=== PATIENT | male | born 1970 | race Asian ===

== ENCOUNTER 2024-12-11 05:25 | Day surgery (SDC) | payer OTHER ==
[~2024-12-11] VITALS: Ht 160 cm; Wt 72.7 kg
[~2024-12-11 05:25] MED LIST: KETOROLAC TROMETHAMINE 0.5% 5 ML OPHTHALMIC SOLUTION ONE; MOXIFLOXACIN HCL 0.5% 3 ML OPHTHALMIC SOLUTION ONE; PHENYLEPHRINE HCL 2.5% 2 ML OPHTHALMIC SOLUTION ONE; TROPICAMIDE 1% 2 ML OPHTHALMIC SOLUTION ONE
[2024-12-11] MEDS: TROPICAMIDE 1% 2 ML OPHTHALMIC SOLUTION OD SCH (06:01)
[2024-12-11] MEDS: KETOROLAC TROMETHAMINE 0.5% 5 ML OPHTHALMIC SOLUTION OD SCH (06:01)
[2024-12-11] MEDS: MOXIFLOXACIN HCL 0.5% 3 ML OPHTHALMIC SOLUTION OD SCH (06:02)
[2024-12-11] MEDS: PHENYLEPHRINE HCL 2.5% 2 ML OPHTHALMIC SOLUTION OD SCH (06:03)
[2024-12-11] MEDS ORDERED: ATOR20TA PO (06:26)
[2024-12-11] MEDS ORDERED: ASPI-1450 PO (06:26)
[2024-12-11] MEDS ORDERED: AMLO-258 PO (06:26)
[2024-12-11] MEDS: RINGERS SOLUTION,LACTATED 500 ML IV ONE (06:42)
[2024-12-11] MEDS: TETRACAINE HCL/PF 0.5% 4 ML OPHTHALMIC SOLUTION ONE (07:00)
[2024-12-11] MEDS: LIDOCAINE/PF 1% 2 ML VIAL ONE (07:05)
[2024-12-11] MEDS: POVIDONE-IODINE 5% 30 ML OPHTHALMIC SOLUTION ONE (07:05)
[2024-12-11] MEDS: EPINEPHrine 1:1,000 [1 MG/ML] VIAL ONE (07:05)
[2024-12-11] MEDS: BALANCED SALT 15 ML OPHTHALMIC IRRIG.SOLN ONE (07:24)
[2024-12-11] MEDS: MitoMYcin 0.2 MG/VIAL KIT FOR OPHTHALMIC USE OD ONE (07:29)
[2024-12-11] MEDS ORDERED: OXYGEN THERAPY IH SCH (08:00)
[2024-12-11] MEDS ORDERED: CHONDR SULF A SOD/HYALURONATE 1.05 ML KIT IO ONE (12:00)
[2024-12-11] MEDS ORDERED: FentaNYL CITRATE PF 100 MCG/2 ML VIAL IVP ONE (12:00)
[2024-12-11] MEDS ORDERED: MIDAZOLAM HCL 2 MG/2 ML VIAL IVP ONE (12:00)
== END 2024-12-11 09:10 | disposition home or self-care (01) ==
LOC: SURGERY 05:25
PROVIDERS: ATTEND Ophthalmology
DX: H25.11 Age-related nuclear cataract, right eye (principal); H40.1112 Primary open-angle glaucoma, right eye, moderate stage; I10 Essential (primary) hypertension; F17.210 Nicotine dependence, cigarettes, uncomplicated; Z79.82 Long term (current) use of aspirin; Z98.890 Other specified postprocedural states
CPT/HCPCS: 0449T; 66984; 93005; J0171; J2250; J3010; J3490